=== PATIENT | male | born 1985 | race Caucasian/White ===

== ENCOUNTER 2021-10-01 09:55 | Emergency (ER) | payer MEDICARE, SELFPAY ==
--- NOTE | 2021-10-01 10:03 | PC.NURSE ---
IV established and blood sent to the lab
[2021-10-01 10:04] VITALS: BP 124/75; PULSE 109; RESP 22; TEMP 37; O2SAT 99; BMI 17.9
--- NOTE | 2021-10-01 10:05 | XR_ITS ---
PROCEDURE INFORMATION: Exam: XR Chest Exam date and time: 10/01/2021 10:16 AM Age: 36 years old Clinical indication: Shortness of breath; Additional info: SOA TECHNIQUE: Imaging protocol: Radiologic exam of the chest. Views: 1 view. COMPARISON: No relevant prior studies available. FINDINGS: Lungs: Unremarkable. No consolidation. Pleural spaces: Unremarkable. No pleural effusion. No pneumothorax. Heart/Mediastinum: Unremarkable. No cardiomegaly. Bones/joints: Unremarkable. IMPRESSION: No acute findings.
--- NOTE | 2021-10-01 10:09 | PC.NURSE ---
portable xr at the bedside.
--- NOTE | 2021-10-01 10:11 | [facility].EDGENADL ---
ED Disposition Clinical Impression: Palpitations Disposition: Home, Self-Care Condition on Discharge: Good Instructions: DI for Palpitations, Anxiety and Panic Attacks (Alternative Therapy) Additional Instructions: You have been evaluated for palpitations, rapid heart rate. Please continue to monitor your symptoms closely. Follow-up with your primary care doctor in 1 to 2 days for symptom recheck. Return to the emergency department at once for any new or worsening symptoms, chest pain, difficulty breathing, other concerns. Time of Disposition: 11:09 - Critical Care Critical Care Time: No Attestation: On , the high probability of a clinically significant, sudden or life threatening deterioration of the following system(s) required my full and direct attention, intervention and personal management. The time I documented below is in addition to time spent performing reported procedures but includes the following listed in this critical care notation. Medical Decision Making - Medical Records Medical records reviewed: Yes: I reviewed the patient's medical records. - Ash Inquiry Pt receiving controlled substance: No Vital Signs: 10/01/21 10:04 Temperature 98.6 F Temperature Source Oral Pulse Rate [Left Radial] 109 H Respiratory Rate 22 Blood Pressure [Right Arm] 124/75 Blood Pressure Mean [Right Arm] 91 02 Sat by Pulse Oximetry 99 Oxygen Delivery Method Room Air - Lab Data Lab Results 10/01/21 10:03: WBC 5.5, RBC 4.98, Hgb 15.4, Hct 46.3, MCV 92.8, MCH 31.0, MCHC 33.4, RDW 12.7, Plt Count 330, MPV 7.5, Neut % (Auto) 55.2, Lymph % (Auto) 30.8, [place] % (Auto) 8.8, Eos % (Auto) 4.5, Baso % (Auto) 0.8, Neut # (Auto) 3.1, Lymph # (Auto) 1.7, [place] # (Auto) 0.5, Eos # (Auto) 0.3, Baso # (Auto) 0.1 10/01/21 10:03: Sodium 138, Potassium 3.8, Chloride 105, Carbon Dioxide 20 L, Anion Gap 16.8 H, BUN 6 L, Creatinine 0.80, Estimated Creat Clear 104, Estimated GFR 111, Est GFR ( Amer) 134, Glucose 120 H, Calcium 9.9, Troponin I < 0.01, TSH 1.90 10/01/21 10:03: D-Dimer 0.34 Result diagrams: 10/01/21 10:03 10/01/21 10:03 Orders (Tests/Meds): ED MEDICATIONS Generic Name Dose Route Start Last Admin Trade Name Frefabi PRN Reason Stop Dose Admin Sodium Chloride 10 ml 10/01/21 10:05 Sodium Chloride 0.9% 10ml Flush Syringe IV 10/31/21 10:04 NEEDED PRN Maintain IV Site Discontinued Medications Generic Name Dose Route Start Last Admin Trade Name Freq PRN Reason Stop Dose Admin Hydroxyzine Pamoate 25 mg 10/01/21 10:14 10/01/21 10:25 Hydroxyzine Pamoate 25mg Capsule PO 10/01/21 10:15 25 mg ONCE ONE Administration ORDERS Category Date Time Status Covid-19 Nasal PCR ([facility]) Routine Lab 10/01/21 10:11 Ordered Troponin I Q3H Lab 10/01/21 13:15 Ordered Troponin I Q3H Lab 10/01/21 16:15 Ordered - ECG Data Tracing #1 Sinus tachycardia with ventricular rate of 105 bpm. QRS 94, QTc 388. Left axis deviation present. No ST segment elevation. No arrhythmia. Medical Decision Narrative: In summary this is a previously healthy 36-year-old male presenting to the emergency department with palpitations, chest tightness, shortness of breath. Patient clinically stable on arrival. Tachycardic to 109 beats minute. Other vital signs within normal limits. Will obtain CBC, CMP, chest x-ray, EKG, troponin profile, D-dimer. Given one-time dose of 25 mg Vistaril EKG shows sinus rhythm. Left axis deviation. No ST segment elevation. No arrhythmia. Initial laboratory results reassuring. No anemia. Glucose and electrolytes within normal limits. D-dimer is not elevated. Doubt pulmonary embolism Troponin undetectable Assessment, patient says he feels much better. He has been able to calm himself down. Heart rate now within normal limits. Recommended close PCP follow-up. Stress reduction strategies. Given return precautions. Stable for discharge General Adult HPI
[2021-10-01 10:12] LABS: Basophils # 0.1 K/mm3 (0-0.2); Basophils % 0.8 % (0.1-2.0); Eosinophils # 0.3 K/mm3 (0.0-0.4); Eosinophils % 4.5 % (0.1-12.0); Hematocrit 46.3 % (42.0-52.0); Hemoglobin 15.4 g/dL (14.1-18.0); Lymphocytes # 1.7 K/mm3 (0.7-4.5); Lymphocytes % 30.8 % (10-50); Mean Corpuscular HGB Conc 33.4 g/dL (31.8-35.4); Mean Corpuscular Volume 92.8 fl (80-94); Mean Platelet Volume 7.5 fl (7.4-10.4); Monocytes # 0.5 K/mm3 (0.1-1.0); Monocytes % 8.8 % (1.7-9.3); Neutrophils # 3.1 K/mm3 (1.8-7.8); Neutrophils % 55.2 % (37.0-80.0); Platelet Count 330 K/mm3 (142-424); Red Blood Count 4.98 M/mm3 (4.60-6.20); Red Cell Distribution Width 12.7 % (11.5-17.5); White Blood Count 5.5 K/mm3 (4.8-10.8)
[2021-10-01 10:19] LABS: Anion Gap 16.8 mEq/L (5-15); Blood Urea Nitrogen 6 mg/dl (9-20); Calcium 9.9 mg/dl (8.4-10.2); Carbon Dioxide 20 mmol/L (22.0-30.0); Chloride 105 mmol/L (98-107); Creatinine Clearance Estimated 104 mL/min (50-200); Estimated Glomerular Filt Rate 111 ml/min (>60); GFR (African American) 134 ML/MIN (>60); Glucose 120 mg/dl (74-100); Potassium 3.8 mmoL/L (3.5-5.1); Sodium 138 mmol/L (136-145)
[2021-10-01 10:28] LABS: D-Dimer 0.34 ug/mL (0.0-0.5)
[2021-10-01 10:30] VITALS: BP 130/85; PULSE 101; RESP 18; O2SAT 100
[2021-10-01 10:37] LABS: Troponin I < 0.01 ng/ml (0.00-0.034)
--- NOTE | 2021-10-01 11:05 | PC.NURSE ---
PT AMBULATED UP TO BATHROOM
[2021-10-01 11:08] VITALS: BP 130/80; PULSE 93; RESP 18; O2SAT 99
--- NOTE | 2021-10-01 11:10 | PC.NURSE ---
rounded on pt. no needs at this time. covid swab sent to the lab
[2021-10-01 11:35] VITALS: BP 130/80; PULSE 93; RESP 18; TEMP 37; O2SAT 99
== END 2021-10-01 11:36 | disposition home or self-care (01) ==
PROVIDERS: Emergency Provider Emergency Medicine
DX: R00.2 Palpitations (principal); R07.89 Other chest pain; R06.02 Shortness of breath; F41.9 Anxiety disorder, unspecified
CPT/HCPCS: 71045; 80048; 84443; 84484; 85025; 85378; 93005; 99284; C9803; U0003; U0005